=== PATIENT | male | born 1935 | race Caucasian/White ===

== ENCOUNTER 2018-01-22 09:51 | Inpatient (IN) | payer OTHER, MEDICARE ==
[~2018-01-22] VITALS: Ht 180.3 cm; Wt 87.0 kg
[~2018-01-22 09:51] MED LIST: COUMADIN5 M1 PO; MULTIVITAMIN1 EAC1 PO; NORVASC5 MG PO; PRAVACHOL80 MG PO
[2018-01-22 10:32] LABS: BASOPHIL (%) 0.4 % (0-1); EOSINOPHIL (%) 0.4 % (0-5); HEMATOCRIT 32.5 % (38.0-50.0); HEMOGLOBIN 10.5 G/DL (12.5-16.6); IMMATURE GRANULOCYTE (%) 0.4 % (0.0-0.7); LYMPHOCYTE (%) 15.2 % (15-42); LYMPHOCYTE COUNT 0.9 K/uL (1.0-2.8); MCH 26.3 PG (29.0-34.0); MCHC 32.3 G/DL (30.0-36.0); MCV 81.5 FL (86-99); MONOCYTE (%) 8.7 % (3-12); MONOCYTE COUNT 0.5 K/uL (0-0.8); NEUTROPHIL (%) 74.9 % (45-76); NEUTROPHIL COUNT 4.3 K/uL (1.8-6.4); PLATELET COUNT 346 K/uL (156-360); RBC DIS.WIDTH-CV 14.9 % (11.8-14.6); RBC DIS.WIDTH-SD 44.1 % (39-53); RED BLOOD COUNT 3.99 M/uL (4.00-5.50); WHITE BLOOD COUNT 5.7 K/uL (4.1-10.2)
[2018-01-22 10:37] LABS: INTER. NORMALIZED RATIO 2.4
[2018-01-22 10:40] LABS: PTT 36.8 SEC (25-37)
[2018-01-22 10:42] LABS: CHLORIDE 106 mEq/L (99-109); POTASSIUM 3.8 mEq/L (3.7-5.4); SODIUM 141 mEq/L (136-147)
[2018-01-22 10:44] LABS: GLUCOSE 145 mg/dL (70-99)
[2018-01-22 10:48] LABS: CREATININE 0.7 mg/dL (0.6-1.3); GFR ESTIMATE (CALCULATED) > 59 mL/min/ (58.99-99999)
[2018-01-22 10:49] LABS: UREA NITROGEN (BUN) 16 mg/dL (9-23)
[2018-01-22 10:53] LABS: TROP-I INTERPRETATION NEGATIVE; TROPONIN-I < 0.01 ng/mL (0.0-0.30)
[2018-01-22] MEDS ORDERED: ZESTRIL10 MG PO (14:26)
[2018-01-22] MEDS ORDERED: GLUCOPHAGE500 MG PO (14:27)
[2018-01-22] MEDS ORDERED: PRESERVISION S1 EACH PO (14:27)
[2018-01-22] MEDS ORDERED: ANTIVERT12.5 MG PO (14:27)
[2018-01-22] MEDS ORDERED: COUMADIN5 MG PO (14:28)
[2018-01-22] MEDS ORDERED: WARFARIN SODIUM5 MG PO (14:29)
[2018-01-22 16:06] VITALS: BP 128/65
[2018-01-22 16:22] LABS: TROP-I INTERPRETATION NEGATIVE; TROPONIN-I < 0.01 ng/mL (0.0-0.30)
[2018-01-22 20:00] VITALS: BP 107/59
[2018-01-22 23:44] VITALS: BP 107/55
[2018-01-23 03:44] VITALS: BP 107/55
[2018-01-23 05:50] LABS: HEMATOCRIT 30.4 % (38.0-50.0); HEMOGLOBIN 9.4 G/DL (12.5-16.6); MCH 25.3 PG (29.0-34.0); MCHC 30.9 G/DL (30.0-36.0); MCV 81.9 FL (86-99); PLATELET COUNT 353 K/uL (156-360); RBC DIS.WIDTH-CV 15.1 % (11.8-14.6); RBC DIS.WIDTH-SD 45.9 % (39-53); RED BLOOD COUNT 3.71 M/uL (4.00-5.50); WHITE BLOOD COUNT 6.8 K/uL (4.1-10.2)
[2018-01-23 05:56] LABS: INTER. NORMALIZED RATIO 2.8
[2018-01-23 06:53] LABS: CHLORIDE 106 MEQ/L (99-109); CREATININE 0.7 MG/DL (0.6-1.3); GFR ESTIMATE (CALCULATED) > 59 mL/min/ (58.99-99999); GLUCOSE 113 mg/dL (70-99); POTASSIUM 3.7 MEQ/L (3.7-5.4); SODIUM 141 MEQ/L (136-147); UREA NITROGEN (BUN) 14 mg/dL (9-23)
[2018-01-23 07:37] VITALS: BP 117/56
[2018-01-23 11:15] VITALS: BP 122/59
[2018-01-23 16:21] VITALS: BP 124/60
[2018-01-23 19:11] LABS: C-REACTIVE PROTEIN 28.2 MG/L (0-10)
[2018-01-23 19:45] VITALS: BP 126/58
[2018-01-23 23:42] VITALS: BP 113/56
[2018-01-24 04:24] VITALS: BP 119/56
[2018-01-24 06:50] LABS: INTER. NORMALIZED RATIO 3.4
[2018-01-24 08:47] LABS: ALBUMIN 3.5 G/DL (3.2-4.8); ALKALINE PHOSPHATASE 138 IU/L (3-129); ALT (GPT) 34 IU/L (3-49); AST (GOT) 26 IU/L (2-34); DIRECT BILIRUBIN 0.1 mg/dL (0.0-0.3); TOTAL BILIRUBIN 0.6 MG/DL (0.0-1.0)
[2018-01-24 08:53] VITALS: BP 133/63
[2018-01-24 09:47] LABS: LYME DISEASE SEROLOGY SCREEN NEGATIVE (NEGATIVE)
[2018-01-24 15:11] VITALS: BP 118/59
[2018-01-24 19:30] VITALS: BP 120/58
[2018-01-24 22:04] LABS: URINE TOTAL PROTEIN 12 MG/DL (0-10)
[2018-01-25 00:06] VITALS: BP 111/53
[2018-01-25 04:06] VITALS: BP 103/67
[2018-01-25 11:44] LABS: HEPATITIS B SURFACE ANTIGEN Nonreactive; HEPATITIS C ANTIBODY Nonreactive
[2018-01-25 11:46] LABS: ANTI-HEPATITIS A VIRUS (IGM) Nonreactive; ANTI-HEPATITIS B CORE (IGM) Nonreactive
[2018-01-25 13:18] VITALS: BP 111/56
[2018-01-25 16:40] VITALS: BP 101/56
[2018-01-25 20:15] VITALS: BP 134/67
[2018-01-25 23:20] VITALS: BP 125/60
[2018-01-26 03:34] VITALS: BP 136/64
[2018-01-26 05:39] LABS: BASOPHIL (%) 0.7 % (0-1); BASOPHIL COUNT 0.1 K/uL (0-0.1); EOSINOPHIL (%) 1.8 % (0-5); EOSINOPHIL COUNT 0.1 K/uL (0-0.3); HEMATOCRIT 31.7 % (38.0-50.0); HEMOGLOBIN 9.8 G/DL (12.5-16.6); IMMATURE GRANULOCYTE (%) 0.3 % (0.0-0.7); LYMPHOCYTE COUNT 1.6 K/uL (1.0-2.8); MCH 25.6 PG (29.0-34.0); MCHC 30.9 G/DL (30.0-36.0); MCV 82.8 FL (86-99); MONOCYTE (%) 11.8 % (3-12); MONOCYTE COUNT 0.8 K/uL (0-0.8); NEUTROPHIL (%) 62.4 % (45-76); NEUTROPHIL COUNT 4.4 K/uL (1.8-6.4); PLATELET COUNT 374 K/uL (156-360); RBC DIS.WIDTH-CV 15.1 % (11.8-14.6); RBC DIS.WIDTH-SD 45.1 % (39-53); RED BLOOD COUNT 3.83 M/uL (4.00-5.50); WHITE BLOOD COUNT 7.1 K/uL (4.1-10.2)
[2018-01-26 06:51] LABS: CHLORIDE 105 MEQ/L (99-109); CREATININE 0.7 MG/DL (0.6-1.3); GFR ESTIMATE (CALCULATED) > 59 mL/min/ (58.99-99999); GLUCOSE 100 mg/dL (70-99); POTASSIUM 3.9 MEQ/L (3.7-5.4); SODIUM 140 MEQ/L (136-147); UREA NITROGEN (BUN) 14 mg/dL (9-23)
[2018-01-26 08:32] VITALS: BP 132/68
[2018-01-26 11:14] VITALS: BP 136/64
[2018-01-26 13:37] LABS: INTER. NORMALIZED RATIO 1.7
[2018-01-26 15:32] VITALS: BP 113/58
[2018-01-26 19:05] VITALS: BP 106/53
[2018-01-27 00:10] VITALS: BP 108/55
[2018-01-27 04:13] VITALS: BP 115/53
[2018-01-27 05:58] LABS: INTER. NORMALIZED RATIO 1.5
[2018-01-27 08:31] VITALS: BP 139/65
[2018-01-27 11:29] VITALS: BP 117/59
[2018-01-27 12:39] LABS: BASOPHIL (%) 0.5 % (0-1); EOSINOPHIL (%) 2.1 % (0-5); EOSINOPHIL COUNT 0.2 K/uL (0-0.3); HEMATOCRIT 32.3 % (38.0-50.0); HEMOGLOBIN 9.9 G/DL (12.5-16.6); IMMATURE GRANULOCYTE (%) 0.1 % (0.0-0.7); LYMPHOCYTE (%) 19.1 % (15-42); LYMPHOCYTE COUNT 1.4 K/uL (1.0-2.8); MCH 25.6 PG (29.0-34.0); MCHC 30.7 G/DL (30.0-36.0); MCV 83.7 FL (86-99); MONOCYTE (%) 12.1 % (3-12); MONOCYTE COUNT 0.9 K/uL (0-0.8); NEUTROPHIL (%) 66.1 % (45-76); PLATELET COUNT 408 K/uL (156-360); RBC DIS.WIDTH-CV 15.3 % (11.8-14.6); RBC DIS.WIDTH-SD 46.5 % (39-53); RED BLOOD COUNT 3.86 M/uL (4.00-5.50); WHITE BLOOD COUNT 7.5 K/uL (4.1-10.2)
[2018-01-27 16:19] LABS: HEMATOCRIT 33.3 % (38.0-50.0); HEMOGLOBIN 10.2 G/DL (12.5-16.6)
== END 2018-01-27 18:05 | disposition home or self-care (01) | DRG 437 ==
LOC: EME 09:51 → EDOF 14:37 → ENRESERV 14:40 → 5WEST 15:37
PROVIDERS: Emergency Medicine; Hospitalist; Internal Medicine; Internal Medicine Gastroenterology; Nurse Practitioner Adult Health; Specialist
PROC: 0FB13ZX Excision of Right Lobe Liver, Percutaneous Approach, Diagnostic (ICD-10-PCS; principal; 2018-01-27)
DX: C22.7 Other specified carcinomas of liver (principal); R55 Syncope and collapse; R42 Dizziness and giddiness; I45.10 Unspecified right bundle-branch block; R79.1 Abnormal coagulation profile; T45.515A Adverse effect of anticoagulants, initial encounter; R53.1 Weakness; R63.4 Abnormal weight loss; E11.9 Type 2 diabetes mellitus without complications; I10 Essential (primary) hypertension; I35.0 Nonrheumatic aortic (valve) stenosis; R00.2 Palpitations; E78.5 Hyperlipidemia, unspecified; D63.8 Anemia in other chronic diseases classified elsewhere; K80.20 Calculus of gallbladder without cholecystitis without obstruction; K57.30 Diverticulosis of large intestine without perforation or abscess without bleeding; Z86.73 Personal history of transient ischemic attack (TIA), and cerebral infarction without residual deficits; Z86.79 Personal history of other diseases of the circulatory system; Z86.711 Personal history of pulmonary embolism; Z86.718 Personal history of other venous thrombosis and embolism; Z85.46 Personal history of malignant neoplasm of prostate; Z92.3 Personal history of irradiation; Z98.2 Presence of cerebrospinal fluid drainage device; Z79.84 Long term (current) use of oral hypoglycemic drugs; Z83.3 Family history of diabetes mellitus
CPT/HCPCS: 70450; 71045; 71250; 74170; 74176; 76705; 77012; 80048; 80074; 80076; 82105 90; 82550; 82607; 82948; 84153; 84484; 85014; 85018; 85025; 85027; 85610; 85651; 85730; 86038; 86140; 86335; 86618; 88305; 88341 TC; 88342 TC; 93005; 93880; 97530 GO; 99281; 99285; G0378; G8978 GP CK; G8979 GP CI; G8987 GO CI; G8987 GO CJ

== ENCOUNTER 2018-05-13 09:53 | Inpatient (IN) | payer OTHER, MEDICARE ==
[~2018-05-13] VITALS: Ht 177.8 cm; Wt 82.9 kg
[~2018-05-13 09:53] MED LIST changes: +ANTIVERT12.5 MG PO; +COLESTID5 GM PO; +COUMADIN5 MG PO; +GLUCOPHAGE500 MG PO; +HYDRALAZINE HCL25 MG PO; +NORVASC10 MG PO; -NORVASC5 MG PO; +PRESERVISION S1 EACH PO; +WARFARIN SODIUM5 MG PO; +ZESTRIL10 MG PO
[2018-05-13 11:13] LABS: ALBUMIN 3.3 g/dL (3.2-4.8); CHLORIDE 106 mEq/L (99-109); POTASSIUM 4.3 mEq/L (3.7-5.4); SODIUM 140 mEq/L (136-147)
[2018-05-13 11:15] LABS: BASOPHIL (%) 0.6 % (0-1); EOSINOPHIL (%) 0 % (0-5); GLUCOSE 184 mg/dL (70-99); HEMATOCRIT 29.9 % (38.0-50.0); HEMOGLOBIN 9.1 G/DL (12.5-16.6); IMMATURE GRANULOCYTE (%) 0.5 % (0.0-0.7); INTER. NORMALIZED RATIO 1.7; LYMPHOCYTE (%) 8.9 % (15-42); LYMPHOCYTE COUNT 0.6 K/uL (1.0-2.8); MCH 22.8 PG (29.0-34.0); MCHC 30.4 G/DL (30.0-36.0); MCV 74.8 FL (86-99); MONOCYTE (%) 8.9 % (3-12); MONOCYTE COUNT 0.6 K/uL (0-0.8); NEUTROPHIL (%) 81.1 % (45-76); NEUTROPHIL COUNT 5.4 K/uL (1.8-6.4); PLATELET COUNT 392 K/uL (156-360); RBC DIS.WIDTH-CV 24.9 % (11.8-14.6); RBC DIS.WIDTH-SD 65.6 % (39-53); TOTAL PROTEIN 7.1 g/dL (6.4-8.3); WHITE BLOOD COUNT 6.7 K/uL (4.1-10.2)
[2018-05-13 11:19] LABS: ALKALINE PHOSPHATASE 308 IU/L (3-129); CREATININE 0.9 mg/dL (0.6-1.3); GFR ESTIMATE (CALCULATED) > 59 mL/min/ (58.99-99999)
[2018-05-13 11:20] LABS: UREA NITROGEN (BUN) 16 mg/dL (9-23)
[2018-05-13 11:21] LABS: AST (GOT) 48 IU/L (2-34)
[2018-05-13 11:22] LABS: ALT (GPT) 30 IU/L (3-49)
[2018-05-13] MEDS ORDERED: ATARAX,VISTARIL25 MG PO (13:18)
[2018-05-13 13:32] LABS: APPEARANCE CLEAR ((CLEAR)); BILIRUBIN NEGATIVE; BLOOD NEGATIVE; COLOR YELLOW ((YELLOW)); GLUCOSE (STRIP) NEGATIVE; KETONES NEGATIVE; LEUKOCYTES NEGATIVE; NITRITE NEGATIVE; PROTEIN (STRIP) 30; SPECIFIC GRAVITY 1.025 (1.000-1.030); UCUL ADDED? NO; UROBILINOGEN 0.2 MG/DL (0.2-1.0)
[2018-05-13 16:00] VITALS: BP 107/55
[2018-05-13 22:45] VITALS: BP 80/44
[2018-05-14 03:23] VITALS: BP 162/72
[2018-05-14 06:48] LABS: INTER. NORMALIZED RATIO 1.7
[2018-05-14 06:50] VITALS: BP 98/52
[2018-05-14 06:52] LABS: HEMATOCRIT 28.7 % (38.0-50.0); HEMOGLOBIN 8.6 G/DL (12.5-16.6); MCH 22.3 PG (29.0-34.0); MCV 74.4 FL (86-99); PLATELET COUNT 336 K/uL (156-360); RBC DIS.WIDTH-CV 25.2 % (11.8-14.6); RBC DIS.WIDTH-SD 65.7 % (39-53); RED BLOOD COUNT 3.86 M/uL (4.00-5.50); WHITE BLOOD COUNT 8.5 K/uL (4.1-10.2)
[2018-05-14 06:59] LABS: ALBUMIN 2.8 G/DL (3.2-4.8); ALKALINE PHOSPHATASE 258 IU/L (3-129); ALT (GPT) 24 IU/L (3-49); AST (GOT) 43 IU/L (2-34); CHLORIDE 106 MEQ/L (99-109); CREATININE 0.7 MG/DL (0.6-1.3); GFR ESTIMATE (CALCULATED) > 59 mL/min/ (58.99-99999); GLUCOSE 136 mg/dL (70-99); LACTATE DEHYDROGENASE 313 IU/L (20-246); POTASSIUM 3.9 MEQ/L (3.7-5.4); SODIUM 139 MEQ/L (136-147); TOTAL BILIRUBIN 0.9 MG/DL (0.0-1.0); TOTAL PROTEIN 5.6 G/DL (6.4-8.3); UREA NITROGEN (BUN) 13 mg/dL (9-23)
[2018-05-14 07:16] LABS: ABS NEUTROPHIL COUNT 7.4; ANISOCYTOSIS 2+; BAND NEUTROPHILS 6.1 % (0-8.0); EOSINOPHIL ABS CT 0; LYMPHOCYTES 4.3 % (15.0-45.0); METAMYELOCYTES 0.9 %; MICROCYTOSIS 2+; MONOCYTES 7.8 % (0-9.0); SEG.NEUTROPHILS 80.9 % (46.0-76.0)
[2018-05-14 09:39] LABS: THYROTROPIN (TSH) 1.7 MIU/L (0.4-5.5)
[2018-05-14 11:00] VITALS: BP 102/52; BP 113/54
[2018-05-14 15:00] VITALS: BP 108/58
[2018-05-14 19:36] VITALS: BP 97/54
[2018-05-14 23:13] VITALS: BP 116/59
[2018-05-15 04:04] VITALS: BP 107/58
[2018-05-15 06:38] LABS: HEMOGLOBIN 8.8 G/DL (12.5-16.6); MCH 22.1 PG (29.0-34.0); MCHC 29.3 G/DL (30.0-36.0); MCV 75.4 FL (86-99); NRBC (%) 0.4 /100 WBC (0-0); PLATELET COUNT 308 K/uL (156-360); RBC DIS.WIDTH-CV 25.6 % (11.8-14.6); RBC DIS.WIDTH-SD 67.7 % (39-53); RED BLOOD COUNT 3.98 M/uL (4.00-5.50); WHITE BLOOD COUNT 4.8 K/uL (4.1-10.2)
[2018-05-15 06:46] LABS: INTER. NORMALIZED RATIO 1.8
[2018-05-15 07:05] VITALS: BP 119/56
[2018-05-15 07:15] LABS: ALBUMIN 2.7 G/DL (3.2-4.8); ALKALINE PHOSPHATASE 235 IU/L (3-129); ALT (GPT) 39 IU/L (3-49); CHLORIDE 109 MEQ/L (99-109); CREATININE 0.6 MG/DL (0.6-1.3); GFR ESTIMATE (CALCULATED) > 59 mL/min/ (58.99-99999); GLUCOSE 155 mg/dL (70-99); POTASSIUM 4.1 MEQ/L (3.7-5.4); SODIUM 142 MEQ/L (136-147); TOTAL PROTEIN 5.4 G/DL (6.4-8.3); UREA NITROGEN (BUN) 14 mg/dL (9-23)
[2018-05-15 07:18] LABS: AST (GOT) 85 IU/L (2-34); TOTAL BILIRUBIN 0.7 MG/DL (0.0-1.0)
[2018-05-15 15:00] VITALS: BP 119/59
[2018-05-15 19:05] VITALS: BP 118/58
[2018-05-15 22:35] VITALS: BP 119/60
[2018-05-16 04:19] VITALS: BP 118/56
[2018-05-16 05:57] LABS: INTER. NORMALIZED RATIO 2.2
[2018-05-16 07:45] VITALS: BP 150/71
[2018-05-16] MEDS ORDERED: DECADRON4 M1 PO (08:10)
== END 2018-05-16 12:52 | disposition home or self-care (01) | DRG 437 ==
LOC: EME 09:53 → EDOF 12:58 → ENRESERV 13:01 → 5EAST 14:46
PROVIDERS: Emergency Medicine; Hospitalist; Physician Assistant
DX: C22.9 Malignant neoplasm of liver, not specified as primary or secondary (principal); R50.81 Fever presenting with conditions classified elsewhere; D70.9 Neutropenia, unspecified; D63.0 Anemia in neoplastic disease; E11.9 Type 2 diabetes mellitus without complications; I10 Essential (primary) hypertension; R01.1 Cardiac murmur, unspecified; R22.41 Localized swelling, mass and lump, right lower limb; Z86.73 Personal history of transient ischemic attack (TIA), and cerebral infarction without residual deficits; Z79.01 Long term (current) use of anticoagulants; Z79.899 Other long term (current) drug therapy; Z79.84 Long term (current) use of oral hypoglycemic drugs
CPT/HCPCS: 71046; 74178; 80053; 81003; 82140; 82948; 83605; 83615; 83880; 84145 90; 84443; 85025; 85027; 85610; 85651; 86140; 87040; 93005; 93970; 94799; 99281; 99285; J1100; J1815; J2543; J3370; J7030; J7050; Q0177